=== PATIENT | female | born 1970 | race Caucasian/White ===

== ENCOUNTER → 2016-08-05 | Outpatient (CLI) | payer OTHER ==
[~2016-08-05] MED LIST: ACET-749 PO; ATV/2 PO; HYDR25CA PO; QUET1TAB32 PO
--- NOTE | 2016-08-06 15:07 | MAMMOGRAPHY REPORT ---
THIS REPORT HAS BEEN AMENDED. BILATERAL DIGITAL SCREENING MAMMOGRAM TOMOSYNTHESIS WITH CAD: 08/05/2016 CLINICAL HISTORY: Routine screening. Patient has no complaints. TECHNIQUE: Breast tomosynthesis in addition to standard 2D mammography was performed. Current study was also evaluated with a Computer Aided Detection (CAD) system. COMPARISON: No prior exams were available for comparison. BREAST COMPOSITION: The tissue of both breasts is heterogeneously dense, which may obscure small ma sses. FINDINGS: No suspicious mass, architectural distortion or cluster of microcalcifications is seen. IMPRESSION: ACR BI-RADS CATEGORY 1: NEGATIVE There is no mammographic evidence of malignancy. Prior outside mammograms are currently being reque sted and if obtained they will be reviewed, compared to the current exam to assess for any more subt le changes, and an addendum will be made to this report. Otherwise, a 1 year screening mammogram is recommended. The patient will receive written notification of the results. Approximately 10% of breast cancers are not detected with mammography. A negative mammographic repor t should not delay biopsy if a clinically suggestive mass is present. Angela Ohara M.D. ay/:08/05/2016 22:00:21 [employer]garten Class[employer] Teacher: Gertrude Hubbard RT(R)(M), [facility] letter sent: Normal /2 BI-RADS Code: ACR BI-RADS Category 1: Negative AMENDMENT: 08/12/2016 Angela Ohara M.D. A prior mammogram from [facility] dated 03/24/2012 became available for review. Comparin g to the prior exams, there is an increasingly conspicuous asymmetry in the far posterior, slightly inferior right breast on the MLO view, for which additional spot compression tomosynthesis views and possibly ultrasound are recommended. No other new suspicious mass, architectural distortion or colette picious mass or calcifications are seen. Amended BI-RADS: ACR BI-RADS Category 0: Incomplete Evaluation: Need Additional Imaging Evaluation letter sent: Addl Imaging 0
== END | disposition home or self-care (01) ==
LOC: C.MAMM 12:20
PROVIDERS: ATTEND Family Medicine
DX: Z12.31 Encounter for screening mammogram for malignant neoplasm of breast (principal)

== ENCOUNTER → 2016-08-20 | Outpatient (CLI) | payer OTHER ==
--- NOTE | 2016-08-20 15:40 | MAMMOGRAPHY REPORT ---
UNILATERAL RIGHT DIGITAL DIAGNOSTIC MAMMOGRAM TOMOSYNTHESIS: 08/20/2016 CLINICAL HISTORY: Callback from screening mammogram for right breast asymmetry. TECHNIQUE: Breast tomosynthesis in addition to standard 2D mammography was performed. Spot moira flaquito right MLO 2-D and tomosynthesis images were obtained. COMPARISON: Comparison is made to exams dated: 08/05/2016 mammogram - [facility] a nd 03/24/2012 mammogram - [facility]. BREAST COMPOSITION: The tissue of the right breast is heterogeneously dense, which may obscure smal l masses. FINDINGS: The previously described asymmetry seen within the right posterior breast on the MLO view effaces on the spot compression view, and is benign and compatible with normal fibroglandular tissue . There is no suspicious mass or other suspicious abnormality in this region on the additional view s. IMPRESSION: ACR BI-RADS CATEGORY 2: BENIGN The right breast asymmetry effaces on the additional views, and is benign and compatible with normal fibroglandular tissue. There is no mammographic evidence of malignancy. A 1 year screening mammogr am is recommended. The patient has been verbally notified of the results. Approximately 10% of breast cancers are not detected with mammography. A negative mammographic repor t should not delay biopsy if a clinically suggestive mass is present. Lucia Guzman M.D. /:08/20/2016 14:21:10 Industrial Truck Operator: Genoveva Tee, [facility] letter sent: Normal 1/2 BI-RADS Code: ACR BI-RADS Category 2: Benign
== END | disposition home or self-care (01) ==
LOC: C.MAMM 13:58
PROVIDERS: ATTEND Family Medicine
DX: R92.8 Other abnormal and inconclusive findings on diagnostic imaging of breast (principal)

== ENCOUNTER 2017-03-07 01:50 | Emergency (ER) | payer OTHER ==
[~2017-03-07] VITALS: Ht 154.9 cm; Wt 61.8 kg
[~2017-03-07 01:50] MED LIST changes: -ATV/2 PO; -HYDR25CA PO; -QUET1TAB32 PO
[2017-03-07 01:56] VITALS: TEMP 36.5; Ht 154.9 cm; Wt 61.8 kg
[2017-03-07] MEDS ORDERED: OPTIRAY 320 IV PRN (02:30)
[2017-03-07 02:33] LABS: BASO % 0.3 %; BASO ABS # 0.04 K/uL (0-0.2); COMPLETE YES; EOS % 5.4 %; HEMATOCRIT 41.3 % (37-47); IG% 0.2 %; LYMPH % 40.4 %; LYMPH ABS # 4.81 K/uL (1.2-3.4); MEAN CORPUSCULAR HEMOGLOBIN 30.5 pg (25-34); MEAN CORPUSCULAR HGB CONC 33.9 g/dl (32-36); MEAN PLATELET VOLUME 9.9 fL (7.4-10.4); MONO % 7.4 %; NEUT % 46.3 %; PLATELET COUNT 293 K/uL (130-400); RED BLOOD COUNT 4.59 M/uL (4.2-5.4); WHITE BLOOD COUNT 11.91 K/uL (4.8-10.8)
[2017-03-07 02:34] LABS: URINE APPEARANCE CLEAR (CLEAR); URINE BILIRUBIN NEG (NEG); URINE COLOR YELLOW; URINE NITRITE NEG (NEG); URINE PH 6.5 (4.5-7.5); URINE SPECIFIC GRAVITY 1.011 (1.000-1.030); UROBILINOGEN NEG (NEG); ZZUR CULT IF INDIC CLEAN CATCH NO
[2017-03-07 02:35] LABS: MANUAL MICROSCOPIC REQUIRED? NO; REVIEW REQ? NO
[2017-03-07] MEDS ORDERED: QUET1TAB32 PO (02:47)
[2017-03-07] MEDS ORDERED: ATV/2 PO (02:48)
[2017-03-07] MEDS ORDERED: HYDR25CA PO (02:49)
[2017-03-07 03:04] LABS: ALB/GLOB RATIO 1.2 (0.9-2); ALKALINE PHOSPHATASE 116 U/L (45-117); ALT/SGPT 53 U/L (12-78); BLOOD UREA NITROGEN 6 mg/dl (7-18); CALCIUM 9.5 mg/dl (8.5-10.1); CARBON DIOXIDE 27 mmol/L (21-32); CHLORIDE 98 mmol/L (98-107); CREATININE 0.89 mg/dl (0.60-1.20); GLUCOSE 92 mg/dl (70-99); SODIUM 130 mmol/L (136-145)
--- NOTE | 2017-03-07 04:19 | EMERGENCY ROOM VISIT NOTE ---
History First contact with patient: 01:57 Chief Complaint: FLANK PAIN Stated Complaint: PAIN IN RIGHT SIDE History of Present Illness The patient is a 46 year old female who presents to the Emergency Room with complaints of right-sided abdominal pain. The patient reports that she had an episode of similar pain around one week ago. She was seen at [facility] and told to come here if her pain returned. She states that she developed pain 2.5 hours ago. The pain is located in the right mid abdomen and she rates the discomfort a 7/10. She denies any associated nausea, vomiting, fevers. She reports some mild dysuria but denies any other urinary symptoms. She has had some difficulty with bowel movements he has been taking Dulcolax for this. She reports a history of a hysterectomy and denies any other abdominal surgeries. She denies any medical problems. Review of Systems A complete 10 point review of systems was reviewed with the patient with pertinent positives and negatives as per history of present illness. All else were negative. Social History Smoking Status: Never Smoker Current/Historical Medications Scheduled Hydroxyzine Pamoate (Vistaril), 25 MG PO DIRECTED Quetiapine Fumarate (Seroquel), 50 MG PO HS Scheduled PRN Lorazepam (Ativan), 5 MG PO DIRECTED PRN for ANXIETY Physical Exam Vital Signs Date Time Temp Pulse Resp B/P (MAP) Pulse Ox O2 Delivery O2 Flow Rate FiO2 03/07/17 06:55 76 18 116/68 96 03/07/17 05:45 75 18 114/71 97 Room Air 03/07/17 03:46 76 16 113/81 96 Room Air 03/07/17 01:56 36.5 85 18 119/72 99 Room Air Physical Exam VITALS: Vitals are noted on the nurse's note and reviewed by myself. Vital signs stable. GENERAL: This is a 46-year-old female, in no acute distress, nondiaphoretic, well-developed well-nourished. SKIN: The skin was without rashes. MOUTH: Mucous membranes moist. HEART: Regular rate and rhythm without murmurs gallops or rubs. LUNGS: Clear to auscultation bilaterally without wheezes, rales or rhonchi. No retractions or accessory muscle use. ABDOMEN: Positive bowel sounds x 4. Soft, mild tenderness in the right mid to lower abdomen. No guarding or rebound tenderness. NEURO: Patient was alert and oriented to person place and time. Medical Decision & Procedures ER Provider Diagnostic Interpretation: CT ABDOMEN & PELVIS: Bibasilar atelectasis. 9 mm stone in the gallbladder neck. No definite evidence of acute cholecystitis. Small hiatal hernia. Small left renal cysts. No hydronephrosis in either kidney. No definite renal or ureteral stone. Punctate calcification anterior to the right psoas muscle is likely a phlebolith in the lateral vein. Normal appendix. No bowel obstruction or inflammation. Probable punctate bone island in the left sacrum. Umbilical piercing. Prominence of the bladder wall is nonspecific. Please correlate with urinalysis to evaluate for cystitis. Status post hysterectomy. Probable narrowing at the origin of the celiac artery. Radiologist: Skip Dhaliwal MD US RUQ: 1.1 cm non-mobile gallstone within the gallbladder neck along with gallbladder sludge. No gallbladder wall thickening and negative sonographic Redmond sign. No sonographic evidence of acute cholecystitis. No intrahepatic or extrahepatic biliary ductal dilatation. The common bile duct measures 3.1 mm. Liver measures 16.1 cm with diffusely increased echotexture, compatible with diffuse fatty infiltration. Normal sonographic appearance of the visualized pancreas and right kidney. No hydronephrosis. Radiologist: Skip Dhaliwal MD Laboratory Results 03/07/17 02:10 Red Blood Count 4.59, Mean Corpuscular Volume 90.0, Mean Corpuscular Hemoglobin 30.5, Mean Corpuscular Hemoglobin Concent 33.9, Mean Platelet Volume 9.9, Neutrophils (%) (Auto) 46.3, Lymphocytes (%) (Auto) 40.4, Monocytes (%) (Auto) 7.4, Eosinophils (%) (Auto) 5.4, Basophils (%) (Auto) 0.3, Neutrophils # (Auto) 5.52, Lymphocytes # (Auto) 4.81, Monocytes # (Auto) 0.88, Eosinophils # (Auto) 0.64, Basophils # (Auto) 0.04 03/07/17 02:10 Test 03/07/17 02:10 White Blood Count 11.91 K/uL (4.8-10.8) Red Blood Count 4.59 M/uL (4.2-5.4) Hemoglobin 14.0 g/dL (12.0-16.0) Hematocrit 41.3 % (37-47) Mean Corpuscular Volume 90.0 fL (80-100) Mean Corpuscular Hemoglobin 30.5 pg (25-34) Mean Corpuscular Hemoglobin Concent 33.9 g/dl (32-36) Platelet Count 293 K/uL (130-400) Mean Platelet Volume 9.9 fL (7.4-10.4) Neutrophils (%) (Auto) 46.3 % Lymphocytes (%) (Auto) 40.4 % Monocytes (%) (Auto) 7.4 % Eosinophils (%) (Auto) 5.4 % Basophils (%) (Auto) 0.3 % Neutrophils # (Auto) 5.52 K/uL (1.4-6.5) Lymphocytes # (Auto) 4.81 K/uL (1.2-3.4) Monocytes # (Auto) 0.88 K/uL (0.11-0.59) Eosinophils # (Auto) 0.64 K/uL (0-0.5) Basophils # (Auto) 0.04 K/uL (0-0.2) RDW Standard Deviation 43.2 fL (36.4-46.3) RDW Coefficient of Variation 13.2 % (11.5-14.5) Immature Granulocyte % (Auto) 0.2 % Immature Granulocyte # (Auto) 0.02 K/uL (0.00-0.02) Urine Color YELLOW Urine Appearance CLEAR (CLEAR) Urine pH 6.5 (4.5-7.5) Urine Specific Upton 1.011 (1.000-1.030) Urine Protein NEG (NEG) Urine Glucose (UA) NEG (NEG) Urine Ketones NEG (NEG) Urine Occult Blood NEG (NEG) Urine Nitrite NEG (NEG) Urine Bilirubin NEG (NEG) Urine Urobilinogen NEG (NEG) Urine Leukocyte Esterase NEG (NEG) Anion Gap 5.0 mmol/L (3-11) Est Creatinine Clear Calc Drug Dose 67.3 ml/min Estimated GFR () 90.7 Estimated GFR (Non- 78.3 BUN/Creatinine Ratio 7.0 (10-20) Calcium Level 9.5 mg/dl (8.5-10.1) Total Bilirubin 0.4 mg/dl (0.2-1) Aspartate Amino Transf (AST/SGOT) U/L (15-37) Alanine Aminotransferase (ALT/SGPT) 53 U/L (12-78) Alkaline Phosphatase 116 U/L (45-117) Total Protein 7.3 gm/dl (6.4-8.2) Albumin 4.0 gm/dl (3.4-5.0) Globulin 3.3 gm/dl (2.5-4.0) Albumin/Globulin Ratio 1.2 (0.9-2) Lipase 197 U/L (73-393) ED Course The patient was evaluated as above. Labs were drawn and IV access was obtained. CT scan of the abdomen and pelvis was performed and read by radiology as above. Right upper quadrant ultrasound was performed. Patient was reevaluated and findings were discussed. Discharge instructions were reviewed with the patient. The patient verbalized understanding of my assessment and treatment plan and was discharged home in good condition. Medical Decision Differential diagnosis includes cholecystitis, pancreatitis, gastroenteritis, colitis, small bowel obstruction, malignancy, among others. The patient is a 46-year-old female who presents today complaining of right upper quadrant abdominal pain. Labs revealed a minimal leukocytosis. There were no concerning electrolyte abnormalities. LFTs were within normal limits. Urinalysis was not suggestive of infection. CT of the abdomen and pelvis was unremarkable except for a stone in the gallbladder neck. RUQ ultrasound was performed and again showed a stone within the gallbladder neck but no findings of cholecystitis. The patient may be having some biliary colic. Her pain has been episodic. She was told before that she had stones in the gallbladder. Case management will make an appointment with a general surgeon this week for follow-up. The patient was encouraged to return here for worsening symptoms. Based on the patient's presentation and work up, I feel the patient is stable for outpatient treatment. The patient was educated to return to the emergency department for any worsening of their current condition or new/concerning symptoms. She will follow up with general surgery. Medication Reconcilliation Current Medication List: was personally reviewed by me Blood Pressure Screening Patient's blood pressure: Normal blood pressure Impression Primary Impression: Right upper quadrant abdominal pain Departure Information Dispostion Home / Self-Care Condition GOOD Referrals No Doctor, Assigned (PCP) Patient Instructions My [facility] Additional Instructions Case management will arrange follow-up with surgery. Make sure you keep this appointment. For pain control, you can use the following [id number] medicines (if >12 yo): - Regular strength (325mg/tab) Tylenol (acetaminophen) 2 tabs every 4-6 hours as needed. Do not exceed 12 tablets in a 24 hour period. Avoid taking more than 4 grams (4000 mg) of Tylenol per day. This includes any other sources of acetaminophen you may take on a regular basis. - Regular strength (200 mg/tab) Advil (ibuprofen) 1-2 tabs every 4-6 hours as needed. Do not exceed a dose of 3200 mg per day. Contact your primary care provider to schedule follow-up this week. Return to the emergency worsening abdominal pain, vomiting, fevers or any other new/concerning symptoms.
[2017-03-07 06:55] VITALS: BP 116/68; PULSE 76; O2SAT 96
--- NOTE | 2017-03-07 07:06 | DIAGNOSTIC IMAGING REPORT ---
ABDOMINAL ULTRASOUND, RIGHT UPPER QUADRANT HISTORY: RUQ pain, gallstones. COMPARISON: Abdomen and pelvis CT 03/07/2017. Abdominal ultrasound 11/06/2015. FINDINGS: Pancreas: The pancreas demonstrates a normal echotexture. Liver: The liver is echogenic consistent with fatty change. Gallbladder: There is a 1.1 cm stone within the neck of the gallbladder and a small amount of gallbladder sludge. The stone appears to be impacted. No gallbladder wall thickening. CBD: 3 mm. Right kidney: No hydronephrosis. IMPRESSION: A 1.1 cm stone within the gallbladder neck which may be impacted. No gallbladder wall thickening at this time. Electronically signed by: Slade Real M.D. 03/07/2017 7:04 AM Dictated Date/Time: 03/07/2017 7:02 AM
--- NOTE | 2017-03-07 07:18 | DIAGNOSTIC IMAGING REPORT ---
ABDOMEN AND PELVIS CT WITH IV CONTRAST CT DOSE: 354.68 mGy.cm HISTORY: right sided abd pain TECHNIQUE: Multiaxial CT images of the abdomen and pelvis were performed following the use of intravenous contrast. A dose lowering technique was utilized adhering to the principles of ALARA. COMPARISON STUDY: Abdominal ultrasound 11/06/2015. FINDINGS: Bibasilar linear densities consistent with subsegmental atelectasis. No fractures within the visualized osseous structures. A 1 cm stone within the gallbladder neck. No definite gallbladder wall thickening. The liver, spleen, adrenal glands, and pancreas are unremarkable. Normal right kidney. A few hypodense lesions within the left kidney. These likely represent cysts. No hydronephrosis. Punctate calcification anterior to the right psoas muscle is consistent with a phlebolith. No ureteral stones. No retroperitoneal lymphadenopathy. Hysterectomy. Mild bladder wall thickening. No bowel wall thickening or obstruction. Normal appendix. IMPRESSION: 1. A 1 cm stone within the gallbladder neck. No definite gallbladder wall thickening. 2. No renal or ureteral stones. No hydronephrosis. 3. No bowel wall thickening or obstruction. 4. Normal appendix. 5. Mild bladder wall thickening. This could be due to underdistention. Recommend correlation with urinalysis. Electronically signed by: Slade Real M.D. 03/07/2017 7:17 AM Dictated Date/Time: 03/07/2017 7:12 AM
== END 2017-03-07 06:57 | disposition home or self-care (01) ==
LOC: C.EDB 01:51 → C.EDA 06:57
DX: R10.11 Right upper quadrant pain (principal); D72.829 Elevated white blood cell count, unspecified; K80.20 Calculus of gallbladder without cholecystitis without obstruction; Z90.710 Acquired absence of both cervix and uterus

== ENCOUNTER 2017-04-01 06:28 | Day surgery (SDC) | payer OTHER ==
[2017-03-24 08:19] VITALS: BMI 25.0
--- NOTE | 2017-03-24 08:44 | PAT Medication Instructions ---
Service Date Mar 24, 2017. Current Home Medication List Hydroxyzine Pamoate (Vistaril), 25 MG PO DIRECTED Lorazepam (Ativan), 0.5 MG PO QD PRN for Anxiety Quetiapine Fumarate (Seroquel), 50 MG PO HS Medication Instructions For Your Scheduled Surgery - Take the following medications the morning of surgery with a sip of water: Hydroxyzine Pamoate (Vistaril), 25 MG PO DIRECTED (if needed) Lorazepam (Ativan), 0.5 MG PO QD PRN for Anxiety (if needed) - Take the following medications as scheduled the night before surgery: Quetiapine Fumarate (Seroquel), 50 MG PO HS Hydroxyzine Pamoate (Vistaril), 25 MG PO DIRECTED (if needed) Lorazepam (Ativan), 0.5 MG PO QD PRN for Anxiety (if needed) If you have any questions please call us at [phone] or [phone] or [phone]
--- NOTE | 2017-03-24 09:27 | DIAGNOSTIC IMAGING REPORT ---
CHEST 2 VIEWS ROUTINE CLINICAL HISTORY: Preoperative chest COMPARISON STUDY: No previous studies for comparison. FINDINGS: The cardiac and mediastinal contours are normal. There is no evidence of focal pulmonary consolidation. There is no evidence of failure. No pleural effusions are visualized.[ IMPRESSION: No active disease in the chest. Electronically signed by: Cliff Olson M.D. 03/24/2017 9:26 AM Dictated Date/Time: 03/24/2017 9:26 AM
[2017-03-24 10:04] LABS: BASO % 0.4 %; BASO ABS # 0.03 K/uL (0-0.2); EOS % 5.6 %; EOS ABS # 0.46 K/uL (0-0.5); HEMATOCRIT 39.1 % (37-47); HEMOGLOBIN 13.3 g/dL (12.0-16.0); IG# 0.02 K/uL (0.00-0.02); LYMPH ABS # 2.94 K/uL (1.2-3.4); MEAN CELL VOLUME 90.5 fL (80-100); MEAN CORPUSCULAR HEMOGLOBIN 30.8 pg (25-34); MEAN PLATELET VOLUME 10.2 fL (7.4-10.4); MONO % 8.1 %; MONO ABS # 0.66 K/uL (0.11-0.59); NEUT % 49.7 %; NEUT ABS # 4.06 K/uL (1.4-6.5); PLATELET COUNT 283 K/uL (130-400); RED CELL DISTRIBUTION WIDTH CV 13.2 % (11.5-14.5); RED CELL DISTRIBUTION WIDTH SD 43.4 fL (36.4-46.3); WHITE BLOOD COUNT 8.17 K/uL (4.8-10.8)
[2017-03-24 10:12] LABS: CALCIUM 9.1 mg/dl (8.5-10.1); CREATININE 0.86 mg/dl (0.60-1.20); POTASSIUM 4.1 mmol/L (3.5-5.1)
[~2017-04-01] VITALS: Ht 154.9 cm; Wt 60.4 kg
[~2017-04-01 06:28] MED LIST changes: -ACET-749 PO; +HYDR25CA PO; +LACTATED RINGER'S 1000ML 1,000 ML IV SCH; +LORA-741 PO; +QUET1TAB32 PO
[2017-04-01] MEDS ORDERED: ACETAMINOPHEN 1000 MG/100 ML IV IV ONE (06:52)
[2017-04-01 07:00] VITALS: BP 106/66; PULSE 78; TEMP 36.7; O2SAT 98; Ht 154.9 cm; Wt 60.4 kg
[2017-04-01] MEDS ORDERED: SCOPOLAMINE 1.5 MG TDSY TD ONE (07:30)
[2017-04-01] MEDS ORDERED: NURSING VERBAL MED ORDER ONE (07:45)
[2017-04-01] MEDS ORDERED: HYDROmorphone INJ 1 MG/ML SYR IV PRN (08:00)
[2017-04-01] MEDS ORDERED: ATROPINE SULFATE 0.1 MG/ML 5ML SYR IV PRN (08:00)
[2017-04-01] MEDS ORDERED: FENTANYL CITRATE INJ 50 MCG/1 ML 2 ML VIAL IV PRN (08:00)
[2017-04-01] MEDS ORDERED: METOCLOPRAMIDE HCL INJ 5 MG/ML 2 ML VIAL IV PRN (08:00)
[2017-04-01] MEDS ORDERED: ONDANSETRON INJ 2 MG/ML 2 ML VIAL IV PRN ×2 (08:00→11:45)
[2017-04-01] MEDS ORDERED: PHENYLEPHRINE 100MCG/ML 5ML SYR IV PRN (08:00)
[2017-04-01] MEDS ORDERED: PROMETHAZINE HCL INJ 12.5 MG in SODIUM CHLORIDE 0.9% 50ML 50 ML IV PRN (08:00)
[2017-04-01] MEDS ORDERED: EpHEDrine SULFATE INJ 50 MG/ML AMP IV PRN (08:00)
--- NOTE | 2017-04-01 10:28 | History & Physical Bridge Note ---
H&P Re-Evaluation Bridge Note: I have examined the patient, reviewed the History & Physical and in the interval since the performance of the History & Physical I have noted the following changes of clinical significance: No changes noted SO at bedside all questions answered
[2017-04-01] MEDS ORDERED: FENTANYL CITRATE INJ 50 MCG/1 ML 2 ML VIAL ONE ×2 (10:35→11:12)
[2017-04-01] MEDS ORDERED: MIDAZOLAM HCL 1 MG/ML 2ML VIAL ONE (10:35)
[2017-04-01] MEDS ORDERED: LIDOCAINE/EPINEPHRINE 1% 20 ML VIAL ONE (10:40)
[2017-04-01] MEDS ORDERED: CONRAY 60% 50 ML VIAL ONE (10:40)
[2017-04-01] MEDS ORDERED: OXYC-57 PO (10:49)
--- NOTE | 2017-04-01 10:51 | Discharge Instructions ---
Discharge Instructions Date of Service Apr 01, 2017. Visit Reason for Visit: Cholelithiasis Discharge Discharge Diagnosis / Problem: laparoscopic cholecystectomy Discharge Goals Goal(s): Decrease discomfort Activity Recommendations Activity Limitations: as noted below Lifting Limitations: no more than 10 pounds Shower/Bathe: tomorrow Driving or Machine Use: resume 3 days after discharge Anesthesia . Post Anesthesia Instructions: If you have had General Anesthesia or IV Sedation: * Do not drive today. * Resume driving when surgeon permits. * Do not make important decisions or sign legal documents today. * Call surgeon for: 1. Temperature elevations greater than 101 degrees F. 2. Uncontrollable pain. 3. Excessive bleeding. 4. Persistent nausea and vomiting. 5. Medication intolerance (nausea, vomiting or rash). * For nausea and vomiting use only clear liquids such as: tea, soda, bouillon until nausea subsides, then gradually increase diet as tolerated. * If you have any concerns or questions, call your surgeon's office. If physician is unavailable and it is an emergency, call 911 or go to the nearest emergency room. . Instructions / Follow-Up Instructions / Follow-Up Dr. Arita in 1 week, call [phone] for any questions or to schedule an appt if you do not already have one Diet Recommendations Recommended Home Diet: no limitations Pending Studies Studies pending at discharge: no Medical Emergencies . Who to Call and When: Medical Emergencies: If at any time you feel your situation is an emergency, please call 911 immediately. . Non-Emergent Contact Non-Emergency issues call your: Surgeon Call Non-Emergent contact if: you have a fever, temperature is above 101.5, your pain is not controlled, you have any medication questions . . "Provider Documentation" section prepared by Rich Swanson. . [place] Drug Monitoring Program Search Results: no issues identified
[2017-04-01] MEDS ORDERED: NEOSTIGMINE METHYLSULFATE 5 MG/5 ML SYR ONE (11:31)
[2017-04-01] MEDS ORDERED: LIDOCAINE 2% 20 MG/ML 5ML SYR IV ONE (11:31)
[2017-04-01] MEDS ORDERED: ROCURONIUM BROMIDE 10 MG/ML 5 ML VIAL IV ONE (11:31)
[2017-04-01] MEDS ORDERED: PROPOFOL IV EMULSION 10 MG/ML 20 ML VIAL IV ONE (11:31)
[2017-04-01] MEDS ORDERED: GLYCOPYRROLATE INJ 0.2 MG/ML VIAL ONE (11:31)
[2017-04-01] MEDS ORDERED: DEXAMETHASONE SOD INJ 4 MG/ML VIAL ONE (11:31)
[2017-04-01] MEDS ORDERED: ONDANSETRON INJ 2 MG/ML 2 ML VIAL ONE (11:31)
[2017-04-01] MEDS ORDERED: OXYCODONE/ACETAMINOPHEN 5-325 TAB PO PRN (11:45)
[2017-04-01] MEDS ORDERED: MoRPHine SULFATE 2 MG/ML CARP IV PRN (11:45)
[2017-04-01] MEDS ORDERED: LACTATED RINGER'S 1000ML 1,000 ML IV SCH (11:45)
--- NOTE | 2017-04-01 11:58 | [facility] Operative Report ---
Operative Report Operative Date Apr 01, 2017. Pre-Operative Diagnosis Cholelithiasis Post-Operative Diagnosis Cholelithiasis Procedure(s) Performed Laparoscopic Cholecystectomy with Intraoperative Cholangiogram with fluoro Surgeon Dr. Arita Packing Line Operator Surgeon(s) BONNIE Baker Estimated Blood Loss 5 ml Findings ccc Specimens A. Gallbladder Description of Procedure OR summary dictated [id number] fluoro utilization dicttaed [id number] I attest to the content of the Intraoperative Record and any orders documented therein. Any exceptions are noted below.
--- NOTE | 2017-04-01 12:14 | OPERATIVE REPORT ---
DATE OF OPERATION: 04/01/2017 PREOPERATIVE DIAGNOSIS: Chronic cholecystitis, cholelithiasis. POSTOPERATIVE DIAGNOSIS: Same. OPERATIVE PROCEDURE: Laparoscopic cholecystectomy, intraoperative cholangiogram with the utilization of fluoro. SURGEON: Dr. Arita. BILLING COORDINATOR: Ayden Swanson PA-C. OPERATION AND FINDINGS: SUMMARY: The patient was brought into the operating room theater. The abdomen was prepped with Betadine scrubbing solution and properly draped. I made a small incision supraumbilically sufficient enough to place a Veress needle followed by a 5 mm trocar followed by CO2 camera. Point of entry inspected and no injury identified. Under direct visualization, we placed a 5 mm epigastric, two 3 mm subcostal ports. The gallbladder was visualized, elevated up from the liver with the 5 mm lateral trocar site, 3 mm trocar site. At this point, the sheridan hepatis dissected out after the gallbladder was free of any adhesions. We were able to go around the cystic duct which was grossly smaller normal. We clipped it proximally. A small opening in the cystic duct was made. Some dark bile came out. A #4 urethral catheter transversing abdominal wall angiogram, 14 angiogram was placed in the cystic duct. Serial x-rays were taken under fluoroscopic guidance which we showed no obstruction, free flow into the duodenum, no common bile duct or bifurcation defects. At this point the cholangiocath was then reviewed, the cystic duct was doubly clipped and divided. Gallbladder was removed in antegrade fashion using electrocautery at 25. Prior to freeing the gallbladder from the bed, the subhepatic and suprahepatic area was checked for hemostasis and appeared satisfactory. We had taken out the gallbladder intact through the epigastric port in an Endopouch. At this point, we placed a 5 mm trocar in the epigastric area, placed catheter in the epigastric area to visualize the umbilical opening. There were no adhesions in the anterior abdominal wall next to the trocar site. Camera was repositioned in the umbilical area. Individual trocars removed and lastly the umbilical trocar. Wounds were closed with 4-0 Monocryl. Steri-Strips applied. The procedure was tolerated well by the patient and was taken to recovery in good condition. I attest to the content of the Intraoperative Record and any orders documented therein. Any exception s are noted below.
--- NOTE | 2017-04-01 12:34 | OPERATIVE REPORT ---
DATE OF OPERATION: 04/01/2017 SURGEON: Dr. Arita. PROCEDURE: Laparoscopic cholecystectomy, intraoperative cholangiogram utilizing the fluoro. SUMMARY: We used the fluoroscopy machine to visualize the cholangiocath, 3 serial spot films were taken which showed no obstruction in the cystic duct. Free flow into the duodenum, no filling defect of the common bile duct. At this point, the fluoro machine was removed and the procedure continued for cholecystectomy. I attest to the content of the Intraoperative Record and any orders documented therein. Any exception s are noted below.
--- NOTE | 2017-04-01 12:40 | Anesthesiology Progress Note ---
Anesthesia Post Op Note Date & Time Apr 01, 2017 at 12:40 Vital Signs Pain Intensity: 0 Vital Signs Past 12 Hours Date Time Temp Pulse Resp B/P (MAP) Pulse Ox O2 Delivery O2 Flow Rate FiO2 04/01/17 12:30 78 18 133/71 100 Oxymask 10 04/01/17 12:20 81 18 120/68 100 Oxymask 10 04/01/17 12:10 36.2 93 10 126/85 100 Oxymask 10 04/01/17 07:00 36.7 78 18 106/66 (79) 98 Room Air Notes Mental Status: alert / awake / arousable, participated in evaluation Pt Amnestic to Procedure: Yes Nausea / Vomiting: adequately controlled Pain: adequately controlled Airway Patency, RR, SpO2: stable & adequate BP & HR: stable & adequate Hydration State: stable & adequate Anesthetic Complications: no major complications apparent Doing well. No complaints. VSS.
[2017-04-01 12:55] VITALS: BP 127/70; PULSE 82; TEMP 36.4; O2SAT 92
--- NOTE | 2017-04-01 12:58 | DIAGNOSTIC IMAGING REPORT ---
CHOLANGIOGRAM O.R. CLINICAL HISTORY: 46 years-old Female presenting with CHOLANGIOGRAM. TECHNIQUE: Fluoroscopy was provided for an intraoperative cholangiogram status post cholecystectomy. Contrast was injected through the cystic duct remnant. COMPARISON: Ultrasound and CT from 03/07/2017. FINDINGS: Postsurgical changes of cholecystectomy. No pathologic dilatation of the cystic duct. A catheter is inserted through the cystic duct. The common bile duct is normal in course and caliber. There are no filling defects seen within the common bile duct to suggest a retained stone. Contrast extends into the small bowel. There is no intrahepatic bile duct dilatation. Fluoroscopy dosage (mGy): 0.49. Fluoroscopy time: 3.9 seconds. Number of fluoroscopic spot images: 1. IMPRESSION: Fluoroscopy provided for an intraoperative cholangiogram status post cholecystectomy. No filling defects within the common bile duct. Electronically signed by: Jose Yo M.D. 04/01/2017 12:57 PM Dictated Date/Time: 04/01/2017 12:55 PM
[2017-04-01 13:25] VITALS: BP 125/71; PULSE 85; O2SAT 93
[2017-04-01 13:55] VITALS: BP 123/60; PULSE 89; TEMP 36.2; O2SAT 93
== END 2017-04-01 13:55 | disposition home or self-care (01) ==
LOC: C.ACU 06:28
PROVIDERS: ATTEND Surgery
DX: K80.10 Calculus of gallbladder with chronic cholecystitis without obstruction (principal); F41.9 Anxiety disorder, unspecified; M19.90 Unspecified osteoarthritis, unspecified site; F17.200 Nicotine dependence, unspecified, uncomplicated; F32.9 Major depressive disorder, single episode, unspecified; Z86.39 Personal history of other endocrine, nutritional and metabolic disease; Z88.2 Allergy status to sulfonamides; Z90.89 Acquired absence of other organs; Z98.890 Other specified postprocedural states; Z83.79 Family history of other diseases of the digestive system; Z81.8 Family history of other mental and behavioral disorders; Z82.49 Family history of ischemic heart disease and other diseases of the circulatory system; Z79.899 Other long term (current) drug therapy

== ENCOUNTER → 2017-08-18 | Outpatient (CLI) | payer OTHER ==
[~2017-08-18] MED LIST changes: -LACTATED RINGER'S 1000ML 1,000 ML IV SCH; +OXYC-57 PO
[2017-08-18 15:56] LABS: ALBUMIN 3.7 gm/dl (3.4-5.0); ALT/SGPT 36 U/L (12-78); AST/SGOT 27 U/L (15-37); BLOOD UREA NITROGEN 11 mg/dl (7-18); CALCIUM 9.3 mg/dl (8.5-10.1); CARBON DIOXIDE 29 mmol/L (21-32); CREATININE 0.89 mg/dl (0.60-1.20); GLUCOSE 97 mg/dl (70-99); POTASSIUM 3.8 mmol/L (3.5-5.1); SODIUM 141 mmol/L (136-145)
[2017-08-18 16:07] LABS: ALKALINE PHOSPHATASE 110 U/L (45-117); TOTAL PROTEIN 6.6 gm/dl (6.4-8.2)
== END | disposition home or self-care (01) ==
LOC: C.LABSPEC 15:28
PROVIDERS: ATTEND Family Medicine
DX: E03.9 Hypothyroidism, unspecified (principal); R53.83 Other fatigue; R60.0 Localized edema